=== PATIENT | female | born 1980 | race Caucasian/White ===

== ENCOUNTER 2019-12-18 12:48 | Emergency (ER) | payer OTHER ==
[~2019-12-18] VITALS: Ht 177.8 cm; Wt 86.2 kg
[2019-12-18 13:00] VITALS: Ht 177.8 cm; Wt 86.2 kg
[2019-12-18 14:08] VITALS: BP 144/71
== END 2019-12-18 14:08 | disposition home or self-care (01) ==
LOC: ED 12:48
DX: S62.355A Nondisplaced fracture of shaft of fourth metacarpal bone, left hand, initial encounter for closed fracture (principal); S20.212A Contusion of left front wall of thorax, initial encounter; V49.49XA Driver injured in collision with other motor vehicles in traffic accident, initial encounter; Y93.I9 Activity, other involving external motion; Y92.481 Parking lot as the place of occurrence of the external cause; Y99.8 Other external cause status
CPT/HCPCS: Q0092